=== PATIENT | male | born 1965 | race Caucasian/White ===

== ENCOUNTER → 2019-12-29 08:14 | Outpatient (BNVA) | payer BC, SELFPAY | PROVIDERS: Family Provider Nurse Practitioner; PCP Nurse Practitioner; Visit Provider Nurse Practitioner | DX: E11.9 Type 2 diabetes mellitus without complications (principal); I10 Essential (primary) hypertension | CPT/HCPCS: 80053; 80061; 83036; 83721 ==

== ENCOUNTER → 2020-04-13 08:35 | Outpatient (BNVA) | payer BC, SELFPAY | PROVIDERS: Family Provider Nurse Practitioner; PCP Nurse Practitioner; Visit Provider Nurse Practitioner | DX: E78.2 Mixed hyperlipidemia (principal); E11.65 Type 2 diabetes mellitus with hyperglycemia; I10 Essential (primary) hypertension; Z79.4 Long term (current) use of insulin | CPT/HCPCS: 80053; 80061; 83036 ==

== ENCOUNTER → 2021-01-10 08:57 | Outpatient (BNVA) | payer BC, SELFPAY | PROVIDERS: Family Provider Nurse Practitioner; PCP Nurse Practitioner; Visit Provider Nurse Practitioner | DX: E11.65 Type 2 diabetes mellitus with hyperglycemia (principal); E78.2 Mixed hyperlipidemia; I10 Essential (primary) hypertension; Z79.4 Long term (current) use of insulin | CPT/HCPCS: 80053; 80061; 83036 ==

== ENCOUNTER 2021-05-02 10:47 | Outpatient (CLI) | payer BC, SELFPAY ==
--- NOTE | 2021-05-02 11:00 | USCV_ITS ---
Naren Cruz Age: 55 Gender: M : 1965 Exam Date: 05/02/2021 11:17 Ordering Phys: Nae Aguilera MD ([email or web address]) Technologist: Exam Location: [facility] [place] Indication: CHF, ATHEROSCLEROTIC HEART DISEASE BP: 122 / 73 HR: 90 Rhythm: Sinus Technical Quality: Adequate MEASUREMENTS (Male / Female) Normal Values 2D ECHO LV Diastolic Diameter PLAX 4.3 cm 4.2 - 5.9 / 3.9 - 5.3 cm LV Systolic Diameter PLAX 2.7 cm IVS Diastolic Thickness 1.0 cm 0.6 - 1.0 / 0.6 - 0.9 cm IVS Systolic Thickness 1.4 cm LVPW Diastolic Thickness 1.3 cm 0.6 - 1.0 / 0.6 - 0.9 cm LVPW Systolic Thickness 1.3 cm LVOT Diameter 2.0 cm LV Ejection Fraction 2D Teich 55.6 % LV Ejection Fraction MOD 2C 61.6 % LV Ejection Fraction 2C AL 62.4 % LA Diameter 3.1 cm LA Width 3.7 cm LA Height 4.4 cm RA Width 3.8 cm RA Height 4.3 cm Aorta at Sinotubular Diameter 3.2 cm M-MODE MV E Point Septal Separation 0.5 cm DOPPLER AV Peak Velocity 100.0 cm/s LVOT Peak Velocity 74.0 cm/s AV Area Cont Eq vti 2.4 cm squared AV Area Cont Eq pk 2.3 cm squared MV Area PHT 5.0 cm squared Mitral E to A Ratio 0.5 MV E' Velocity 23.0 cm/s Mitral E to MV E' Ratio 8.7 Mitral E to LV E' Lateral Ratio 8.5 Mitral E to LV E' Septal Ratio 8.8 TR Peak Velocity 189.3 cm/s TR Peak Gradient 14.3 mmHg TV Peak E Velocity 102.0 cm/s Right Atrial Pressure 3.0 mmHg Pulmonary Artery Systolic Pressu 17.3 mmHg FINDINGS Left Ventricle Normal left ventricular size and upper normal wall thickness. Mildly decreased left ventricular systolic function. Left ventricular ejection fraction is estimated at 45-50 %. There is severe hypokinesis of mid anteroseptal, apical septal and apical smith. Grade I diastolic dysfunction (abnormal relaxation filling pattern), normal to mildly elevated filling pressures. Right Ventricle Normal right ventricular size and systolic function. Right ventricular systolic pressure 17.3 mmHg. Right Atrium Normal right atrial size. Left Atrium Mildly increased left atrial size. Mitral Valve Mildly thickened mitral valve. No mitral valve stenosis. Mild mitral valve regurgitation. Aortic Valve Structurally normal trileaflet aortic valve. No aortic valve stenosis. Trace aortic valve regurgitation. Tricuspid Valve Structurally normal tricuspid valve. No tricuspid valve stenosis. Trace to mild tricuspid valve regurgitation. Pulmonic Valve Structurally normal pulmonic valve. No pulmonary valve stenosis. Mild pulmonary valve regurgitation. Pericardium No pericardial effusion. Aorta Normal size aortic root and proximal ascending aorta. CONCLUSIONS 1. Normal left ventricular size and upper normal wall thickness. Mildly decreased left ventricular systolic function. Left ventricular ejection fraction is estimated at 45-50 %. There is severe to akinesis hypokinesis of mid anteroseptal, apical septal and apical smith. Grade I diastolic dysfunction (abnormal relaxation filling pattern), normal to mildly elevated filling pressures. 2. Mild mitral valve regurgitation. 3. When compared to previous study dated 05/24/2018, left ventricular systolic function seems to have improved. Nae Aguilera MD (Electronically Signed) Final Date: 05 May 2021 22:30 S
== END 2021-05-02 10:48 | disposition home or self-care (01) ==
LOC: RAD 10:50
PROVIDERS: PCP Nurse Practitioner; Visit Provider Internal Medicine Cardiovascular Disease
DX: I25.10 Atherosclerotic heart disease of native coronary artery without angina pectoris (principal); I50.9 Heart failure, unspecified; I34.0 Nonrheumatic mitral (valve) insufficiency
CPT/HCPCS: 93306

== ENCOUNTER → 2021-05-30 08:08 | Outpatient (BNVA) | payer BC, SELFPAY | PROVIDERS: PCP Nurse Practitioner; Visit Provider Nurse Practitioner | DX: E11.65 Type 2 diabetes mellitus with hyperglycemia (principal); Z79.4 Long term (current) use of insulin; I10 Essential (primary) hypertension | CPT/HCPCS: 80053; 80061; 83036 ==

== ENCOUNTER → 2021-06-01 10:03 | Outpatient (BNVA) | payer BC, SELFPAY | PROVIDERS: PCP Nurse Practitioner; Visit Provider Nurse Practitioner | DX: E11.65 Type 2 diabetes mellitus with hyperglycemia (principal); Z79.4 Long term (current) use of insulin; E11.40 Type 2 diabetes mellitus with diabetic neuropathy, unspecified; I10 Essential (primary) hypertension; K12.2 Cellulitis and abscess of mouth | CPT/HCPCS: 81000 ==

== ENCOUNTER → 2021-10-03 08:16 | Outpatient (BNVA) | payer BC, SELFPAY | PROVIDERS: PCP Nurse Practitioner; Visit Provider Nurse Practitioner | DX: E11.65 Type 2 diabetes mellitus with hyperglycemia (principal); Z79.4 Long term (current) use of insulin; I10 Essential (primary) hypertension | CPT/HCPCS: 80053; 80061; 83036 ==

== ENCOUNTER → 2021-12-27 08:02 | Outpatient (BNVA) | payer BC, SELFPAY | PROVIDERS: PCP Nurse Practitioner; Visit Provider Nurse Practitioner | DX: E11.65 Type 2 diabetes mellitus with hyperglycemia (principal); Z79.4 Long term (current) use of insulin | CPT/HCPCS: 80053; 80061; 83036 ==

== ENCOUNTER 2022-09-15 16:29 | Emergency (ER) | payer BC, SELFPAY ==
[2022-09-15 16:30] VITALS: BP 203/105; PULSE 107; RESP 16; TEMP 36.8; O2SAT 97; BMI 26.4
--- NOTE | 2022-09-15 17:14 | XRR_ITS ---
PROCEDURE INFORMATION: Exam: XR Chest Exam date and time: 09/15/2022 5:28 PM Age: 56 years old Clinical indication: Cough; Prior surgery; Surgery date: 6+ months; Surgery type: Heart stents TECHNIQUE: Imaging protocol: Radiologic exam of the chest. Views: 1 view. COMPARISON: CR XR chest 1V [id number] 05/23/2018 4:02 PM FINDINGS: Lungs: Unremarkable. No consolidation. Pleural spaces: Unremarkable. No pleural effusion. No pneumothorax. Heart/Mediastinum: Unremarkable. No cardiomegaly. Bones/joints: No acute abnormality. XR/XR chest 1V portable [id number] IMPRESSION: No acute findings.
--- NOTE | 2022-09-15 17:14 | CTR_ITS ---
PROCEDURE INFORMATION: Exam: CT Cervical Spine Without Contrast Exam date and time: 09/15/2022 5:46 PM Age: 56 years old Clinical indication: Weakness; Additional info: Syncope TECHNIQUE: Imaging protocol: Computed tomography of the cervical spine without contrast. Radiation optimization: All CT scans at this facility use at least one of these dose optimization techniques: automated exposure control; mA and/or kV adjustment per patient size (includes targeted exams where dose is matched to clinical indication); or iterative reconstruction. REPORTING DATA: Count of CT and Cardiac NM exams in prior 12 months: This patient has received [address] and 0 known cardiac nuclear medicine studies in the 12 months prior to the current study. COMPARISON: CR (CHEST, ) 09/15/2022 5:28 PM RADIATION DOSE METRICS: Total DLP (mGy-cm): 251.8 FINDINGS: Bones/joints: No acute fracture. Normal alignment. No significant disc bulge or herniation. No severe spinal canal stenosis. No significant neural foraminal narrowing. Lungs: Lung apices are normal. Soft tissues: Unremarkable. CT/CT cervical spin wo con* [id number] IMPRESSION: No acute findings.
--- NOTE | 2022-09-15 17:14 | CTR_ITS ---
PROCEDURE INFORMATION: Exam: CT Head Without Contrast Exam date and time: 09/15/2022 5:46 PM Age: 56 years old Clinical indication: Syncope and collapse; Additional info: Left arm weakness / numbness TIA TECHNIQUE: Imaging protocol: Computed tomography of the head without contrast. Radiation optimization: All CT scans at this facility use at least one of these dose optimization techniques: automated exposure control; mA and/or kV adjustment per patient size (includes targeted exams where dose is matched to clinical indication); or iterative reconstruction. REPORTING DATA: Count of CT and Cardiac NM exams in prior 12 months: This patient has received [address] and 0 known cardiac nuclear medicine studies in the 12 months prior to the current study. COMPARISON: No relevant prior studies available. RADIATION DOSE METRICS: Total DLP (mGy-cm): 1230.4 FINDINGS: Brain: Mild volume loss. No hemorrhage. Unremarkable white matter. No mass effect. Cerebral ventricles: No ventriculomegaly. Paranasal sinuses: There is mild mucosal thickening in the sinuses especially the right maxillary sinus. Mastoid air cells: There is trace fluid in the mastoid air cells. Bones/joints: Unremarkable. No acute fracture. Soft tissues: Unremarkable. CT/CT head wo con* [id number] IMPRESSION: No acute intracranial abnormality.
--- NOTE | 2022-09-15 17:17 | W.ED.SYNCOPE ---
HPI - Syncope General: Chief Complaint: Syncope Stated Complaint: SYNCOPE Time Seen by Provider: 09/15/22 16:51 Source: patient and family History of Present Illness: 56-year-old male who presents after having a syncopal episode. The patient had been having a coughing spell at home. He had walked outside when he subsequently had a syncopal episode. He denies injury from the syncopal episode. He states he had a cough for a week, productive of green sputum. He has had cough syncope in the past. He states that when he did come to, he had numbness and weakness of his left upper extremity. He states that the weakness has completely resolved but he has a little residual numbness which is also improving. He denies any lower extremity weakness. He denies any difficulty with speech. He states his vision is unchanged. He is blind in his left eye and he has diminished vision in the right eye due to glaucoma. Patient does have a history of hypertension, diabetes coronary artery disease, hyperlipidemia, congestive heart failure. He also forgot to take his medications this morning. As far as the cough goes, patient's had a cough for a week. He states he is coughing up green sputum. He had some mild associated shortness of breath. He is not vaccinated for COVID. He denies ill contacts. He has not had any pain in his chest in association with it. Associated symptoms: Deny abdominal pain, chest pain, fever(s), headache(s) or nausea Review of Systems Const: Denies: fever(s), chills or body aches Eyes: Denies: change in vision ENMT: Reports: disequilibrium (Chronic); Denies: throat pain Card: Reports: syncope; Denies: chest pain Resp: Reports: dyspnea and productive cough (Green sputum); Denies: wheezing or hemoptysis GI: Denies: abdominal pain, nausea, vomiting or diarrhea Neuro: Reports: numbness in extremities, weakness in extremities and sensory changes; Denies: headache(s) or difficulty communicating thoughts [facility] ED PFSH: Medical History CAD (coronary artery disease), standing rock coronary artery CHF (congestive heart failure), NYHA class III Chronic migraine Diabetes mellitus with hyperglycemia, with long-term current use of insulin Essential (primary) hypertension History of Machado's palsy 1998 Surgical History History of cataract surgery Bilateral History of coronary artery stent placement 05/23/2018 Family History Other Diabetes Hypertension Social History Smoking and tobacco status: never smoked Second hand smoke exposure: No Smoking risk assessment/counseling performed?: No Alcohol intake: never Desire information about alcohol rehabilitation?: No Counseling given: No Desire information about substance/drug rehabilitation?: No Counseling given: No Adopted: No Caregiver/support person: No Lives independently: Yes Household members: none Marital status: / Current occupational status: unemployed Current gender identity: Male Physical Exam Const: COMMON NORMALS: no acute distress, patient oriented x3 and well nourished HENMT: COMMON NORMALS: normocephalic, atraumatic and moist oral mucous membranes HEAD & SCALP: normocephalic and atraumatic Neck/C-Spine: OTHER: Trachea midline, no cervical spine tenderness. Chest: OTHER: No chest wall tenderness. Resp: OTHER: Equal breath sounds bilaterally, no rhonchi or wheezing Cardio: COMMON NORMALS: regular rate and regular rhythm RATE: regular rate RHYTHM: regular rhythm GI: COMMON NORMALS: Normal to inspection, nondistended, normoactive bowel sounds present, Soft to palpation and non-tender PALPATION: Yes Soft to palpation Extremity: OTHER: No deformity, no tenderness Neuro: COMMON NORMALS: patient oriented x3, CN's II-XII intact bilaterally, moves all extremities, no focal motor deficits and no sensory deficits noted (Decree sensation on the left forearm) Course ED course: CT head negative. We will proceed with CTA of the head and neck. We will give 325 mg of aspirin. Patient's blood sugar is 290. We will give him a 500 cc IV fluid bolus and recheck his Accu-Chek. Patient is currently already on Brilinta so will not give Plavix. Vital Signs: Vital signs: Vital Signs Temperature 98.3 F 09/15/22 16:30 Pulse Rate 88 09/15/22 20:00 Respiratory Rate 16 09/15/22 20:00 Blood Pressure 177/97 09/15/22 20:00 Pulse Oximetry 98 09/15/22 20:00 Oxygen Delivery Me thod 09/15/22 16:30 MDM - Syncope Medical Decision Making 56-year-old male who presents with syncopal episode after coughing. Patient had left arm numbness and weakness after the event. He has some residual numbness at this time. His NIH is 2 because of his chronic visual loss so really truly is 1. Because of the minimal deficits and the syncopal episode with associated head trauma, the patient is not in candidate for tPA. We will proceed with stroke work-up including getting a CT of his head. We will also obtain labs and a chest x-ray. We will plan for a CTA of the patient's head and neck as well. We will give aspirin as long as there is no hemorrhage. We will obtain an EKG. Patient's CT head shows no acute intracranial abnormality. We will give 324 mg of baby aspirin. We will proceed with CTA of the head and neck. CTA of the head and neck does show moderate to severe stenosis of the origin of the left vertebral artery with a dominant right vertebral artery but no other intracranial or extracranial stenosis. Patient has been given IV labetalol in the ER with improvement of his blood pressure. His symptoms have completely resolved. He is wanting to go home. I explained to the patient that he probably has had a mini stroke. He is already on aspirin and Brilinta. I am going to increase him to a full aspirin. He also is on a statin. He forgot his medications today so his hypertension and his hyperglycemia are related to him not having any of his medications including his insulin and his antihypertensives. I have instructed him to go home and take them when he gets home. He has been instructed to return immediately if has any recurrent symptoms at all. Medical Records I reviewed the patient's medical records. Lab Data I reviewed the patient's lab results. Patient's white blood cell count is normal 8.6. H&H are normal. Sed rate is slightly elevated at 26. Sodium 136, potassium 3.6, chloride 97, CO2 is 24. BUN 15, creatinine 0.9. Glucose 298. 09/15/22 17:30 09/15/22 17:30 Radiology Impressions Cervical Spine CT 09/15/22 17:14 IMPRESSION: No acute findings. Chest X-Ray 09/15/22 17:14 IMPRESSION: No acute findings. Head CT 09/15/22 17:14 IMPRESSION: No acute intracranial abnormality. Head/Neck CTA 09/15/22 18:29 IMPRESSION: No intracranial stenosis or occlusion. IMPRESSION: 1. Moderate to severe stenosis at the origin of the left vertebral artery. No stenosis of the dominant right vertebral artery. 2. No carotid stenosis. REFERENCES: NASCET CRITERIA. The degree of stenosis in the cervical segment of the internal carotid artery is based on NASCET criteria. Normal is no stenosis. Mild is less than 50% stenosis. Moderate is 50-69% stenosis. Severe is 70% to 99% stenosis. Total occlusion is no detectable patent lumen. Laboratory Results WBC 8.6 10^3/uL (4.0-10.0) 09/15/22 17:30 RBC 4.59 10^6/uL (4.1-5.3) 09/15/22 17:30 Hgb 13.2 g/dL (11.7-16.6) 09/15/22 17:30 Hct 38.8 % (42.0-52.0) L 09/15/22 17:30 MCV 84.5 fl (80-94) 09/15/22 17:30 MCH 28.8 pg (28.0-34.0) 09/15/22 17:30 MCHC 34.0 g/dL (30.0-36.0) 09/15/22 17:30 RDW 12.8 % (12.1-15.1) 09/15/22 17:30 Plt Count 273 10^3/cmm (130-400) 09/15/22 17:30 MPV 9.3 fL (7.4-10.4) 09/15/22 17:30 Neut % (Auto) 80.7 % 09/15/22 17:30 Lymph % (Auto) 11.7 % 09/15/22 17:30 [place] % (Auto) 6.1 % 09/15/22 17:30 Eos % (Auto) 0.8 % 09/15/22 17:30 Baso % (Auto) 0.5 % 09/15/22 17:30 Neut # (Auto) 6.92 10^3/uL (1.8-7.7) 09/15/22 17:30 Lymph # (Auto) 1.0 10^3/uL (0.8-4.8) 09/15/22 17:30 [place] # (Auto) 0.5 10^3/uL (0.2-0.9) 09/15/22 17:30 Eos # (Auto) 0.1 10^3/uL (0.0-0.8) 09/15/22 17:30 Baso # (Auto) 0.0 10^3/uL (0.0-0.1) 09/15/22 17:30 Nucleated RBC % (auto) 0 % 09/15/22 17: Nucleated RBCs # 0.0 /100WBC 09/15/22 17:30 ESR 26 mm/hr (0-10) H 09/15/22 17:30 Sodium 136 mmol/L (136-145) 09/15/22 17:30 Potassium 3.6 mmol/L (3.5-5.1) 09/15/22 17:30 Chloride 97 mmol/L (98-107) L 09/15/22 17:30 Carbon Dioxide 24 mmol/L (22-29) 09/15/22 17:30 Anion Gap 18.6 (5-19) 09/15/22 17:30 BUN 15 mg/dL (6-20) 09/15/22 17:30 Creatinine 0.9 mg/dL (0.7-1.2) 09/15/22 17:30 GFR Calculation 86.7 mL/min (90-130) L 09/15/22 17:30 Glucose 290 mg/dL (65-115) H 09/15/22 17:30 Calculated Osmolality 293 mOsm/kg (285-295) 09/15/22 17:30 Calcium 9.7 mg/dL (8.5-10.5) 09/15/22 17:30 Total Bilirubin 0.2 mg/dL (0.15-1.2) 09/15/22 17:30 AST 29 U/L (0-40) 09/15/22 17:30 ALT 29 U/L (0-41) 09/15/22 17:30 Alkaline Phosphatase 104 U/L (40-130) 09/15/22 17:30 Total Protein 7.5 g/dL (6.6-8.7) 09/15/22 17:30 Albumin 4.4 g/dL (3.5-5.2) 09/15/22 17:30 Globulin 3.1 g/dL (1.3-4.6) 09/15/22 17:30 Discharge Plan Discharge Patient Disposition: Home Clinical Impression: Syncope, Hypertension, Acute hyperglycemia, Bronchitis, Transient ischemic attack Condition: Stable Prescriptions: New Zithromax Z-Jordan 250 mg tablet See Rx Instructions .ROUTE .COMPLEX Qty: 6 0RF Rx Instructions: For 250 mg dose pack: take 500 mg today (day 1), then 250 mg for 4 days (days 2-5) benzonatate 200 mg capsule 200 mg PO TID PRN (Reason: cough) Qty: 30 0RF No Action nitroglycerin 0.4 mg tablet, sublingual 0.4 mg sublingual Q5M PRN (Reason: chest pain) Qty: 25 3RF Rx Instructions: do not exceed 3 doses per episode Ocuvite Eye Health 50 mg-15 unit- 4.5 mg-2.5 mg tablet,chewable 1 tab PO DAILY aspirin 81 mg tablet,delayed release (DR/EC) 81 mg PO DAILY (DME) insulin syringe-needle U-100 [BD Insulin Syringe] 1 mL 29 gauge x 1/2 syringe See Rx Instructions .Route Qty: 100 5RF Rx Instructions: daily ascorbic acid (vitamin C) 500 mg tablet 500 mg PO DAILY carvedilol 12.5 mg tablet 12.5 mg PO BID Qty: 180 3RF Novolin R Regular U-100 Insuln 100 unit/mL solution See Rx Instructions SUBCUT TID Rx Instructions: 10-15U subcutaneously three times daily; gabapentin 100 mg capsule 200 mg PO DAILY Qty: 60 5RF Lantus U-100 Insulin 100 unit/mL solution See Rx Instructions SUBCUT DAILY Qty: 30 5RF Rx Instructions: up to 100U subcutaneously daily; losartan 50 mg tablet 50 mg PO BID Qty: 60 5RF metformin 500 mg tablet 500 mg PO BID Qty: 60 5RF ticagrelor 60 mg tablet 60 mg PO BID Qty: 180 3RF rosuvastatin 20 mg tablet 20 mg PO DAILY Qty: 90 3RF Discharge Orders: Discharge ED (Routine); Ordered 09/15/22 Ordered By: Annie Rosario Referrals: Celeste Willingham, [facility] [Primary Care Provider] - Discharge Diet: Advance as tolerated Discharge Activity: Increase activity as tolerated Patient Instructions: Transient Ischemic Attack (ED), Syncope (DC), Acute Bronchitis (ED), Opioid Safety, Pain Management Activity Restrictions/Additional Instructions: Take your medications as prescribed. Increase to a full aspirin daily. Make sure you do not miss your medications. Return immediately if you have any recurrent symptoms. Follow-up next week with your primary care doctor. Coding Level of Care Code ED Package Worker for Diego Johns NIH stroke score NIHSS Level Of Consciousness - 1a: 0 Level Of Consciousness Questions - 1b: Both Correct Level Of Consciousness Commands - 1c: Both Correct Best Gaze - 2: Normal Visual Pearl - 3: Partial Hemianopia Facial Palsy - 4: Normal Motor Arm Right - 5: No Drift Motor Arm Left - 5: No Drift Motor Leg Right - 6: No Drift Motor Leg Left - 6: No Drift Limb Ataxia - 7: Absent Sensory - 8: Mild To Moderate Loss Best Language - 9: No Aphasia Dysarthia - 10: Normal If Intubated/Physcial Barrier - Explain: Patient is blind in the left eye and has diminished vision in the right eye Extinction And Inattention - 11: 0 Score Total Score: 2
[2022-09-15 17:51] LABS: Basophils % 0.5 %; Eosinophils # 0.1 10^3/uL (0.0-0.8); Eosinophils % 0.8 %; Hematocrit 38.8 % (42.0-52.0); Hemoglobin 13.2 g/dL (11.7-16.6); Lymphocytes % 11.7 %; Mean Corpuscular Hemoglobin 28.8 pg (28.0-34.0); Mean Corpuscular Volume 84.5 fl (80-94); Mean Platelet Volume 9.3 fL (7.4-10.4); Monocytes # 0.5 10^3/uL (0.2-0.9); Monocytes % 6.1 %; Neutrophils # 6.92 10^3/uL (1.8-7.7); Neutrophils % 80.7 %; Nucleated Red Blood Cells % 0 %; Platelet Count 273 10^3/cmm (130-400); Red Blood Count 4.59 10^6/uL (4.1-5.3); Red Cell Distribution Width 12.8 % (12.1-15.1); White Blood Count 8.6 10^3/uL (4.0-10.0)
[2022-09-15 17:55] LABS: Erythrocyte Sedimentation Rate 26 mm/hr (0-10)
[2022-09-15 18:07] LABS: Alanine Aminotransferase 29 U/L (0-41); Albumin Level 4.4 g/dL (3.5-5.2); Alkaline Phosphatase 104 U/L (40-130); Anion Gap 18.6 (5-19); Aspartate Amino Transferase 29 U/L (0-40); Blood Urea Nitrogen 15 mg/dL (6-20); Calcium 9.7 mg/dL (8.5-10.5); Carbon Dioxide 24 mmol/L (22-29); Chloride 97 mmol/L (98-107); Globulin 3.1 g/dL (1.3-4.6); Glomerular Filtration Rate 86.7 mL/min (90-130); Glucose 290 mg/dL (65-115); Osmolality Calculated 293 mOsm/kg (285-295); Potassium 3.6 mmol/L (3.5-5.1); Sodium 136 mmol/L (136-145); Total Bilirubin 0.2 mg/dL (0.15-1.2); Total Protein 7.5 g/dL (6.6-8.7)
[2022-09-15] MEDS: labetalol 5 mg/mL SDV 20mL 20 MG IVP (18:08)
--- NOTE | 2022-09-15 18:29 | CTR_ITS ---
PROCEDURE INFORMATION: Exam: CTA Head With Contrast, Arteriography Exam date and time: 09/15/2022 6:36 PM Age: 56 years old Clinical indication: Syncope and collapse; Additional info: TIA TECHNIQUE: Imaging protocol: Computed tomographic angiography of the head with contrast. Exam focused on the arteries. 3D rendering (Not supervised by radiologist): MIP and/or 3D reconstructed images were created by the technologist. Radiation optimization: All CT scans at this facility use at least one of these dose optimization techniques: automated exposure control; mA and/or kV adjustment per patient size (includes targeted exams where dose is matched to clinical indication); or iterative reconstruction. Contrast material: OMNI 350; Contrast volume: 100 ml; Contrast route: INTRAVENOUS (IV); REPORTING DATA: Count of CT and Cardiac NM exams in prior 12 months: This patient has received 2 known CTs and 0 known cardiac nuclear medicine studies in the 12 months prior to the current study. COMPARISON: CT head wo con* [id number] 09/15/2022 5:46 PM RADIATION DOSE METRICS: Total DLP (mGy-cm): 468.8 FINDINGS: ANTERIOR CIRCULATION: Right internal carotid artery: There is calcified plaque in the right carotid siphon. No significant stenosis. No aneurysm. Right middle cerebral artery: No occlusion or significant stenosis. No aneurysm. Right anterior cerebral artery: No occlusion or significant stenosis. No aneurysm. Left internal carotid artery: There is calcified plaque in the left carotid siphon. No significant stenosis. No aneurysm. Left middle cerebral artery: No occlusion or significant stenosis. No aneurysm. Left anterior cerebral artery: No occlusion or significant stenosis. No aneurysm. POSTERIOR CIRCULATION: Right vertebral artery: No occlusion or significant stenosis. No aneurysm. Left vertebral artery: No occlusion or significant stenosis. No aneurysm. Basilar artery: No occlusion or significant stenosis. No aneurysm. Right posterior cerebral artery: No occlusion or significant stenosis. No aneurysm. Left posterior cerebral artery: No occlusion or significant stenosis. No aneurysm. Brain: See head CT PROCEDURE INFORMATION: Exam: CTA Neck With Contrast Exam date and time: 09/15/2022 6:36 PM Age: 56 years old Clinical indication: Syncope and collapse; Additional info: TIA TECHNIQUE: Imaging protocol: Computed tomographic angiography of the neck with contrast. 3D rendering (Not supervised by radiologist): MIP and/or 3D reconstructed images were created by the technologist. Radiation optimization: All CT scans at this facility use at least one of these dose optimization techniques: automated exposure control; mA and/or kV adjustment per patient size (includes targeted exams where dose is matched to clinical indication); or iterative reconstruction. Contrast material: OMNI 350; Contrast volume: 100 ml; Contrast route: INTRAVENOUS (IV); REPORTING DATA: Count of CT and Cardiac NM exams in prior 12 months: This patient has received 2 known CTs and 0 known cardiac nuclear medicine studies in the 12 months prior to the current study. COMPARISON: CT cervical spin wo con* [id number] 09/15/2022 5:46 PM RADIATION DOSE METRICS: Total DLP (mGy-cm): 468.8 FINDINGS: Right common carotid artery: No stenosis. No dissection or occlusion. Right internal carotid artery: There is calcified plaque in the right internal carotid artery without stenosis. Right external carotid artery: No occlusion or stenosis of the origin. Left common carotid artery: No stenosis. No dissection or occlusion. Left internal carotid artery: There is calcified plaque in the proximal left internal carotid artery without stenosis. Left external carotid artery: No occlusion or stenosis of the origin. Right vertebral artery: The right vertebral artery is dominant. No stenosis. No dissection. Left vertebral artery: There is calcified plaque at the origin of the left vertebral artery with moderate to severe stenosis. No distal stenosis. No dissection. Soft tissues: Normal. No significant soft tissue swelling. Bones/joints: No acute fracture. CT/CT angio headneck* [id number] IMPRESSION: No intracranial stenosis or occlusion. IMPRESSION: 1. Moderate to severe stenosis at the origin of the left vertebral artery. No stenosis of the dominant right vertebral artery. 2. No carotid stenosis. REFERENCES: NASCET CRITERIA. The degree of stenosis in the cervical segment of the internal carotid artery is based on NASCET criteria. Normal is no stenosis. Mild is less than 50% stenosis. Moderate is 50-69% stenosis. Severe is 70% to 99% stenosis. Total occlusion is no detectable patent lumen.
[2022-09-15] MEDS: iohexol 350 mg/mL 500 mL Btl (per mL) IV (18:37)
[2022-09-15 19:00] VITALS: BP 193/94; PULSE 99; RESP 16; O2SAT 95
[2022-09-15] MEDS: sodium chloride 0.9% 500 ML IV (19:07)
[2022-09-15] MEDS: aspirin 81 mg Chew Tablet 324 MG PO (19:09)
[2022-09-15 19:31] VITALS: BP 197/90; PULSE 84; RESP 16; O2SAT 96
[2022-09-15 20:00] VITALS: BP 177/97; PULSE 88; RESP 16; O2SAT 98
[2022-09-15 20:30] VITALS: BP 183/89; PULSE 85; RESP 16; O2SAT 98
[2022-09-18 19:30] LABS: Glucose Point of Care 291 mg/dL (70-110)
== END 2022-09-15 20:57 | disposition home or self-care (01) ==
PROVIDERS: Emergency Provider Emergency Medicine; PCP Nurse Practitioner
DX: R55 Syncope and collapse (principal); I10 Essential (primary) hypertension; R73.9 Hyperglycemia, unspecified; J40 Bronchitis, not specified as acute or chronic; G45.9 Transient cerebral ischemic attack, unspecified; I25.10 Atherosclerotic heart disease of native coronary artery without angina pectoris; I50.9 Heart failure, unspecified
CPT/HCPCS: 36416; 70450; 70496; 70498; 71045; 72125; 80053; 82962; 85025; 85651; 96361; 96374; 99285; J3490; J7040; Q9967

== ENCOUNTER → 2022-09-25 09:19 | Outpatient (BNVA) | payer BC, SELFPAY | PROVIDERS: PCP Nurse Practitioner; Visit Provider Dermatology | DX: Z01.89 Encounter for other specified special examinations (principal) ==

== ENCOUNTER → 2022-11-11 11:28 | Outpatient (BNVA) | payer SELFPAY | PROVIDERS: PCP Nurse Practitioner; Visit Provider Registered Nurse Neonatal Intensive Care | DX: R39.9 Unspecified symptoms and signs involving the genitourinary system (principal); N39.0 Urinary tract infection, site not specified | CPT/HCPCS: 81000; 87086 ==

== ENCOUNTER 2023-01-08 10:49 | Outpatient (CLI) | payer OTHER, SELFPAY ==
--- NOTE | 2023-01-08 11:10 | XR_ITS ---
WS: [id number] Exam: XR lumbar spine 2-3V* [id number] Date/Time of Exam: 01/08/2023 11:20 AM Reason For Exam: ENCOUNTER FOR DISABILITY No acute fracture or dislocation. There is spondylosis and moderate dextroscoliosis. Facet DJD at all levels. Mild degenerative disc narrowing at all levels. XR/XR lumbar spine 2-3V* [id number] IMPRESSION: 1. Moderate degenerative changes and spondylosis. Dextroscoliosis. 2. No fracture or dislocation.
--- NOTE | 2023-01-08 11:11 | XR_ITS ---
WS: [id number] Exam: XR shoulder RT min 2V* [id number] Date/Time of Exam: 01/08/2023 11:20 AM Reason For Exam: ENCOUNTER FOR DISABILITY DETERMINATIONS No fracture or dislocation noted. High riding humeral head probably indicates long-standing tear of t he rotator cuff. There is spurring along the inferior margin of the distal clavicle and acromion. AC joint DJD. Degenerative change of the glenohumeral joint. XR/XR shoulder RT min 2V* [id number] IMPRESSION: 1. Moderate degenerative changes. No fracture or dislocation. 2. High riding humeral head probably indicates long-standing rotator cuff tear.
--- NOTE | 2023-01-08 11:12 | XR_ITS ---
WS: [id number] Exam: XR hand RT 2V [id number] Date/Time of Exam: 01/08/2023 11:20 AM Reason For Exam: ENCOUNTER FOR DISABILITY DETERMINATIONS No acute fracture or dislocation. Mild degenerative changes in the MP joints and IP joints. Degenerat dru narrowing of the radiocarpal joint. Normal soft tissues. XR/XR hand RT 2V [id number] IMPRESSION: 1. Degenerative changes. No fracture or dislocation.
== END 2023-01-08 10:50 | disposition home or self-care (01) ==
PROVIDERS: PCP Nurse Practitioner; Visit Provider Nurse Practitioner
DX: Z02.71 Encounter for disability determination (principal); M19.041 Primary osteoarthritis, right hand; M19.011 Primary osteoarthritis, right shoulder; M47.896 Other spondylosis, lumbar region; M41.86 Other forms of scoliosis, lumbar region; M89.8X5 Other specified disorders of bone, thigh
CPT/HCPCS: 72100; 73030; 73120

== ENCOUNTER → 2023-03-26 09:33 | Outpatient (BNVA) | payer SELFPAY | PROVIDERS: PCP Nurse Practitioner; Visit Provider Dermatology | DX: Z01.89 Encounter for other specified special examinations (principal) ==

== ENCOUNTER → 2023-09-24 09:48 | Outpatient (BNVA) | payer SELFPAY | PROVIDERS: PCP Nurse Practitioner; Visit Provider Dermatology | DX: Z01.89 Encounter for other specified special examinations (principal) ==

== ENCOUNTER → 2023-12-30 16:19 | Outpatient (BNVA) | payer MEDICAID, SELFPAY | PROVIDERS: PCP Nurse Practitioner; Visit Provider Nurse Practitioner | DX: E11.65 Type 2 diabetes mellitus with hyperglycemia (principal); Z79.4 Long term (current) use of insulin; I25.10 Atherosclerotic heart disease of native coronary artery without angina pectoris; F41.8 Other specified anxiety disorders; E11.40 Type 2 diabetes mellitus with diabetic neuropathy, unspecified; I10 Essential (primary) hypertension; I82.402 Acute embolism and thrombosis of unspecified deep veins of left lower extremity; E78.2 Mixed hyperlipidemia; E11.9 Type 2 diabetes mellitus without complications; R23.8 Other skin changes; Z79.899 Other long term (current) drug therapy | CPT/HCPCS: 80053; 80061; 82607; 83036 ==

== ENCOUNTER → 2024-03-17 15:34 | Outpatient (BNVA) | payer MEDICAID, SELFPAY | PROVIDERS: PCP Nurse Practitioner; Visit Provider Nurse Practitioner | DX: Z79.4 Long term (current) use of insulin (principal); N39.0 Urinary tract infection, site not specified; E11.9 Type 2 diabetes mellitus without complications; E11.65 Type 2 diabetes mellitus with hyperglycemia | CPT/HCPCS: 80053; 80061; 81000; 83036; 87086 ==

== ENCOUNTER → 2024-06-29 16:34 | Outpatient (BNVA) | payer MEDICAID, SELFPAY | PROVIDERS: PCP Nurse Practitioner; Visit Provider Nurse Practitioner | DX: E11.65 Type 2 diabetes mellitus with hyperglycemia (principal); Z79.4 Long term (current) use of insulin; E78.2 Mixed hyperlipidemia; E55.9 Vitamin D deficiency, unspecified; Z12.5 Encounter for screening for malignant neoplasm of prostate; R82.90 Unspecified abnormal findings in urine | CPT/HCPCS: 80053; 80061; 81000; 82306; 83036; 83735; 84443; 87086; G0103 ==

== ENCOUNTER → 2024-10-19 16:05 | Outpatient (BNVA) | payer MEDICARE, MEDICAID, SELFPAY | PROVIDERS: PCP Nurse Practitioner; Visit Provider Nurse Practitioner | DX: E11.65 Type 2 diabetes mellitus with hyperglycemia (principal); Z79.4 Long term (current) use of insulin | CPT/HCPCS: 80053; 80061; 83036; 83721 ==

== ENCOUNTER → 2025-01-25 15:42 | Outpatient (BNVA) | payer MEDICARE, MEDICAID, SELFPAY | PROVIDERS: PCP Nurse Practitioner; Visit Provider Nurse Practitioner | DX: E11.9 Type 2 diabetes mellitus without complications (principal); E55.9 Vitamin D deficiency, unspecified; E11.65 Type 2 diabetes mellitus with hyperglycemia; Z79.4 Long term (current) use of insulin | CPT/HCPCS: 80053; 81003; 82306; 82607; 83036; 87086 ==

== ENCOUNTER → 2025-06-01 15:46 | Outpatient (BNVA) | payer MEDICARE, MEDICAID, SELFPAY | PROVIDERS: PCP Nurse Practitioner; Visit Provider Nurse Practitioner | DX: E11.65 Type 2 diabetes mellitus with hyperglycemia (principal); Z79.4 Long term (current) use of insulin | CPT/HCPCS: 80053; 80061; 82043; 83036 ==